=== PATIENT | female | born 1965 | race Caucasian/White ===

== ENCOUNTER 2016-12-04 15:14 | Emergency (ER) | payer OTHER ==
[2016-12-04 16:15] LABS: HEMOGLOBIN 14.5 gm/dl (12.3-15.3); RED BLOOD COUNT 4.96 M/UL (4.00-5.10); WHITE BLOOD COUNT 7.1 K/UL (4.5-11.0)
== END 2016-12-04 22:30 | disposition home or self-care (01) ==
LOC: ER1 15:14
PROVIDERS: Emergency Medicine
DX: R10.13 Epigastric pain (principal); R00.1 Bradycardia, unspecified; R42 Dizziness and giddiness; R11.0 Nausea; F17.200 Nicotine dependence, unspecified, uncomplicated; Z86.73 Personal history of transient ischemic attack (TIA), and cerebral infarction without residual deficits
CPT/HCPCS: 36415; 70450; 71010; 80053; 82550; 82553; 83690; 83874; 84484; 85025; 85379; 93005; 99284